=== PATIENT | male | born 1980 | race Caucasian/White ===

== ENCOUNTER 2017-11-12 17:12 | Emergency (ER) | payer SELFPAY ==
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
[2017-11-12] MEDS ORDERED: HYDROmorphONE/DILAUDID 2 MG/ML INJ IVP ONE ×2 (17:27→18:21)
[2017-11-12] MEDS ORDERED: TDAP ADULT 0.5 ML INJ (BOOSTRIX) IM ONE (17:27)
[2017-11-12 19:37] VITALS: BP 139/107
[2017-11-12] MEDS ORDERED: ONDANSETRON DISINTEGRATING 4 MG TAB PO ONE (19:37)
== END 2017-11-12 19:49 | disposition home or self-care (01) ==
LOC: EDBD 17:12
DX: S42.292A Other displaced fracture of upper end of left humerus, initial encounter for closed fracture (principal); Z23 Encounter for immunization; V18.0XXA Pedal cycle driver injured in noncollision transport accident in nontraffic accident, initial encounter; Y99.8 Other external cause status; Y93.55 Activity, bike riding
CPT/HCPCS: 96374; A4565; J1170; L3980